=== PATIENT | female | born 1990 | race American Indian/Alaskan Native ===

== ENCOUNTER 2017-01-18 14:23 | Emergency (ER) | payer SELFPAY ==
[2017-01-18 14:36] VITALS: BP 115/61; PULSE 94; TEMP 98; BMI 23.3
--- NOTE | 2017-01-18 15:19 | PDOC ---
History of Present Illness - General Chief Complaint: ,Possible Stated Complaint: TEST Time Seen by Provider: 01/18/17 14:56 History Source: Patient Exam Limitations: No Limitations - History of Present Illness Initial Comments: 01/18/17 15:13 Patient is a 26-year-old female, denies any significant medical history currently on no medication presents emergency department requesting testing. Patient states her last menstrual period that was normal was December 05. She has not gotten her. On January 04 that she has tried several tests at home with faint line which determines patient wants to make sure that she is . He denies any vaginal discharge or bleeding, no abdominal pain, no cramping, no back pain, no urinary symptoms. No fever. Past Medical History: Denies. Allergies: No known allergies Medications: None Family History: Non-contributory Social History: Denies smoking, alcohol use, or IVDU Review of Systems GENERAL/CONSTITUTIONAL: No fever or chills. No weakness. No weight change. HEAD, EYES, EARS, NOSE AND THROAT: No change in vision. No ear pain or discharge. No sore throat. CARDIOVASCULAR: No chest pain or shortness of breath. RESPIRATORY: No cough, wheezing, or hemoptysis. GASTROINTESTINAL: No nausea, vomiting, diarrhea or constipation. No rectal bleeding. GENITOURINARY: No dysuria, frequency, or change in urination. MUSCULOSKELETAL: No joint or muscle swelling or pain. No neck or back pain. SKIN AND BREASTS: No rash or easy bruising. NEUROLOGIC: No headache, vertigo, loss of consciousness, or loss of sensation. PSYCHIATRIC: No depression or anxiety. ENDOCRINE: No increased thirst. No abnormal weight change. HEMATOLOGIC/LYMPHATIC: No anemia, easy bleeding, or history of blood clots. ALLERGIC/IMMUNOLOGIC: No hives or skin allergy. No latex allergy. Physical Exam: GENERAL: The patient is awake, alert, and fully oriented, in no acute distress. HEAD: Normal with no signs of trauma. EYES: Pupils equal, round and reactive to light, extraocular movements intact, sclera anicteric, conjunctiva clear. ENT: Ears normal, nares patent, oropharynx clear without exudates. Moist mucous membranes. No uvula deviation NECK: Normal range of motion, supple without lymphadenopathy, JVD, or masses. LUNGS: Breath sounds equal, clear to auscultation bilaterally. No wheezes, and no crackles. HEART: Regular rate and rhythm, normal S1 and S2 without murmur, rub or gallop. ABDOMEN: Soft, nontender, normoactive bowel sounds. No guarding, no rebound. No masses. No bruising or abrasions MUSCULOSKELETAL: Normal range of motion, no edema. No clubbing or cyanosis. No cords, erythema, or tenderness. No CVA Tenderness with fist. SKIN: Warm, Dry, normal turgor, no rashes or lesions noted. 01/18/17 19:20 Past History - Past Medical History Allergies/Adverse Reactions: Allergies Allergy/AdvReac Type Severity Reaction Status Date / Time No Known Allergies Allergy Verified 01/18/17 14:36 Home Medications: Ambulatory Orders NK [No Known Home Medication] 01/18/17 Other medical history: DENIES. - Suicide/Smoking/Psychosocial Hx Smoking History: Current every day smoker Number of Cigarettes Smoked Daily: 4 Information on smoking cessation initiated: No Hx Alcohol Use: No Drug/Substance Use Hx: No Substance Use Type: None *Physical Exam - Vital Signs Last Vital Signs Temp Pulse Resp BP Pulse Ox 98 F 94 H 18 115/61 99 01/18/17 14:35 01/18/17 14:35 01/18/17 14:35 01/18/17 14:35 01/18/17 14:35 Medical Decision Making - Medical Decision Making 01/18/17 15:18 A/P: Patient here for testing, urine sent, awaiting results physical examination is benign. 01/18/17 16:07 Urine is negative. Patient will need to follow up with HIV COUNSELOR for amenorrhea, patient states her sister has the same stated problem and is currently being worked up. *DC/Admit/Observation/Transfer Diagnosis at time of Disposition: Amenorrhea - Discharge Dispostion Disposition: HOME Condition at time of disposition: Good Admit: No - Referrals Referrals: Rehana Francisco MD [Staff Physician] - - Patient Instructions Printed Discharge Instructions: DI for Amenorrhea Additional Instructions: Recommend follow-up as soon as possible with HIV COUNSELOR. If any abdominal pain, cramping, bleeding, discharge, or any other concerns return to ER
[2017-01-18 15:45] LABS: URINE APPEARANCE CLEAR; URINE BILIRUBIN NEGATIVE (NEGATIVE); URINE BLOOD NEGATIVE (NEGATIVE); URINE COLOR STRAW; URINE GLUCOSE (UA) NEGATIVE (NEGATIVE); URINE KETONE NEGATIVE (NEGATIVE); URINE NITRITE NEGATIVE (NEGATIVE); URINE PROTEIN NEGATIVE (NEGATIVE); URINE UROBILINOGEN NEGATIVE mg/dL (0.2-1.0)
[2017-01-18 18:01] LABS: URINE LEUK ESTERASE Negative (NEGATIVE)
== END 2017-01-18 16:12 | disposition home or self-care (01) ==
LOC: JERFT 14:23
DX: N91.2 Amenorrhea, unspecified (principal)
CPT/HCPCS: 81003; 84703; 99281-25

== ENCOUNTER 2017-02-01 11:30 | Emergency (ER) | payer SELFPAY ==
[2017-02-01 11:41] VITALS: BP 108/72; PULSE 98; TEMP 98; BMI 23.8
--- NOTE | 2017-02-01 12:16 | PDOC ---
History of Present Illness - General Chief Complaint: Vaginal Bleeding Stated Complaint: REVISIT/ FOLLOW-UP Time Seen by Provider: 02/01/17 12:15 History Source: Patient - History of Present Illness Timing/Duration: reports: changing over time Past History - Past Medical History Allergies/Adverse Reactions: Allergies Allergy/AdvReac Type Severity Reaction Status Date / Time No Known Allergies Allergy Verified 02/01/17 11:41 Home Medications: Ambulatory Orders NK [No Known Home Medication] 01/18/17 COPD: No - Suicide/Smoking/Psychosocial Hx Smoking History: Never smoked Number of Cigarettes Smoked Daily: 4 Hx Alcohol Use: No Drug/Substance Use Hx: No Substance Use Type: None Review of Systems - Review of Systems Constitutional: No: Chills, Fever ABD/GI: No: Nausea, Vomiting : No: Dysuria, Flank Pain *Physical Exam - Vital Signs Last Vital Signs Temp Pulse Resp BP Pulse Ox 98.0 F 98 H 20 108/72 100 02/01/17 11:38 02/01/17 11:38 02/01/17 11:38 02/01/17 11:38 02/01/17 11:38 - Physical Exam General Appearance: Yes: Appropriately Dressed. No: Apparent Distress HEENT: positive: Normal Voice Neck: positive: Supple Respiratory/Chest: negative: Respiratory Distress Female Pelvic Exam: positive: normal external exam, cervical os closed, normal adnexa, vaginal bleeding (small amount vag bleed, no clots). negative: CMT Gastrointestinal/Abdominal: positive: Soft. negative: Tender Musculoskeletal: negative: CVA Tenderness Integumentary: positive: Dry, Warm Neurologic: positive: Fully Oriented, Alert, Normal Mood/Affect ED Treatment Course - RADIOLOGY Radiology Studies Ordered: Category Date Time Status TRANSVAGINAL US PREG [US] Stat Ultrasound 02/01/17 12:16 Ordered Medical Decision Making - Medical Decision Making 02/01/17 12:26 26-year-old female, (s/p 2 spon abs), ~8 weeks by dates, seen in the ER 5 days ago for abdominal pain. Beta was 866 with no IUP on ultrasound and no e/ o ectopic. Was told to return yesterday for reassessment, but had to work so was unable to make it as per patient. States abdominal pain has since resolved. Is currently spotting but no clots. Denies dysuria, n/v/f/c See exam 1st trimester bleed No IUP on US 5 days ago w/ beta of 866, ua wnl Stable and well marcie w/ small amount of vag bleed and closed os -trent rpt beta and US at this time 02/01/17 13:22 02/01/17 13:42 Beta >3K. Signed out to ED Ora pending US 02/01/17 13:50 02/01/17 16:55 *DC/Admit/Observation/Transfer Diagnosis at time of Disposition: Bleeding in early - Discharge Dispostion Disposition: HOME Condition at time of disposition: Stable - Referrals Referrals: Guillermo Arreguin MD [Staff Physician] - Rehana Francisco MD [Staff Physician] - - Patient Instructions Printed Discharge Instructions: DI for Vaginal Bleeding During Additional Instructions: Please return to the ER if symptoms persist, worsen, or new symptoms arise. Please follow up with your primary care physician in 2-3 days. Please follow up with Dr. Francisco (TRUCK ENGINE ASSEMBLER) by calling her office tomorrow. Please return to the ER if you have any signs or symptoms of chest pain, shortness of breath, uncontrollable fever, chills, nausea, vomiting, numbness, tingling, or weakness in any part of your body, changes in vision, or slurred speech. Print Language: BELARUSIAN
[2017-02-01 13:38] LABS: URINE APPEARANCE SLCLOUDY; URINE BILIRUBIN NEGATIVE (NEGATIVE); URINE BLOOD 2+ (NEGATIVE); URINE COLOR YELLOW; URINE GLUCOSE (UA) NEGATIVE (NEGATIVE); URINE KETONE NEGATIVE (NEGATIVE); URINE NITRITE NEGATIVE (NEGATIVE); URINE PROTEIN NEGATIVE (NEGATIVE); URINE UROBILINOGEN NEGATIVE mg/dL (0.2-1.0)
--- NOTE | 2017-02-01 14:08 | PDOC ---
*Physical Exam - Vital Signs Last Vital Signs Temp Pulse Resp BP Pulse Ox 98.0 F 98 H 20 108/72 100 02/01/17 11:38 02/01/17 11:38 02/01/17 11:38 02/01/17 11:38 02/01/17 11:38 ED Treatment Course - ADDITIONAL ORDERS Additional order review: Laboratory Results 02/01/17 02/01/17 12:28 12:20 Beta HCG, Quant 3214.1 Urine Color Yellow Urine Appearance Slcloudy Urine pH 5.0 Ur Specific [place] 1.015 Urine Protein Negative Urine Glucose (UA) Negative Urine Ketones Negative Urine Blood 2+ H Urine Nitrite Negative Urine Bilirubin Negative Urine Urobilinogen Negative Medical Decision Making - Medical Decision Making 02/01/17 14:07 The patient was signed out to me by AILYN Dolan. Patient is a 26F with previous complaints of vaginal bleeding. Pending U/ S. 02/01/17 16:14 U/S shows gestational sac at 6 weeks with no pole. No evidence of pathology in adnexa. *DC/Admit/Observation/Transfer Diagnosis at time of Disposition: Bleeding in early - Discharge Dispostion Disposition: HOME Condition at time of disposition: Stable - Referrals Referrals: Rehana Francisco MD [Staff Physician] - Guillermo Arreguin MD [Staff Physician] - - Patient Instructions Additional Instructions: Please return to the ER if symptoms persist, worsen, or new symptoms arise. Please follow up with your primary care physician in 2-3 days. Please follow up with Dr. Francisco (SAMPLE DISTRIBUTOR) by calling her office tomorrow. Please return to the ER if you have any signs or symptoms of chest pain, shortness of breath, uncontrollable fever, chills, nausea, vomiting, numbness, tingling, or weakness in any part of your body, changes in vision, or slurred speech.
[2017-02-01 14:21] LABS: URINE MUCUS RARE; URINE WBC <1 /hpf (3-5)
[2017-02-01 18:01] LABS: URINE LEUK ESTERASE Negative (NEGATIVE)
== END 2017-02-01 16:40 | disposition home or self-care (01) ==
LOC: JER 11:30
DX: O26.891 Other specified pregnancy related conditions, first trimester (principal); Z3A.08 8 weeks gestation of pregnancy; N93.9 Abnormal uterine and vaginal bleeding, unspecified
CPT/HCPCS: 36415; 76817-TC; 76856-TC; 81003; 81015; 84702; 99282-25

== ENCOUNTER 2018-11-28 14:43 | Emergency (ER) | payer SELFPAY ==
[2018-11-28 14:50] VITALS: BMI 27.3
--- NOTE | 2018-11-28 14:55 | PDOC ---
Rapid Medical Evaluation Chief Complaint: Pain Time Seen by Provider: 11/28/18 14:47 Medical Evaluation: Allergies Allergy/AdvReac Type Severity Reaction Status Date / Time No Known Allergies Allergy Verified 11/28/18 14:50 Vital Signs Temp Pulse Resp BP Pulse Ox 98 F 71 18 135/94 99 11/28/18 14:45 11/28/18 14:45 11/28/18 14:45 11/28/18 14:45 11/28/18 14:45 11/28/18 14:52 I have performed a brief in-person evaluation of this patient. The patient presents with a chief complaint of: Lower abd pain. States she had sexual intercourse w/ condom use with new partner 1 week ago and states condom came out of her yesterday. No vag discharge, dysuria, n/v/f/c Pertinent physical exam findings:Stable I have ordered the following:ua/upreg/gc/chlam The patient will proceed to the ED for further evaluation. Discharge Disposition - Diagnosis Abdominal pain Qualifiers: Abdominal location: unspecified location Qualified Code(s): R10.9 - Unspecified abdominal pain - Referrals - Patient Instructions - Post Discharge Activity
[2018-11-28 15:39] LABS: EPI CELLS 2.6 /HPF (0-5/HPF); HYALINE CASTS 1 /lpf (0-8); URINE APPEARANCE CLEAR; URINE BACTERIA 15.9 /hpf (NEGATIVE); URINE BILIRUBIN NEGATIVE (NEGATIVE); URINE COLOR YELLOW; URINE GLUCOSE (UA) NEGATIVE (NEGATIVE); URINE KETONE NEGATIVE (NEGATIVE); URINE LEUK ESTERASE 1+ (NEGATIVE); URINE NITRITE NEGATIVE (NEGATIVE); URINE PROTEIN NEGATIVE (NEGATIVE); URINE RBC 4 /hpf (0-4); URINE UROBILINOGEN 0.2 mg/dL (0.2-1.0); URINE WBC 6 /hpf (0-5)
--- NOTE | 2018-11-28 17:53 | PDOC ---
History of Present Illness - General Chief Complaint: Pain Stated Complaint: ABD PAIN Time Seen by Provider: 11/28/18 14:47 History Source: Patient Exam Limitations: No Limitations Past History - Past Medical History Allergies/Adverse Reactions: Allergies Allergy/AdvReac Type Severity Reaction Status Date / Time No Known Allergies Allergy Verified 11/28/18 14:50 Home Medications: Ambulatory Orders Doxylamine Succinate/Vit B6 [Yousif Loera 10-10 mg Tablet] 1 each PO ASDIR #60 tablet. 02/06/17 COPD: No - Reproductive History Therapeutic (s) & number: No - Immunization History Immunization Up to Date: Yes - Suicide/Smoking/Psychosocial Hx Smoking History: Never smoked Number of Cigarettes Smoked Daily: 4 Hx Alcohol Use: No Drug/Substance Use Hx: No Substance Use Type: None *Physical Exam - Vital Signs Last Vital Signs Temp Pulse Resp BP Pulse Ox 98 F 71 18 135/94 99 11/28/18 14:45 11/28/18 14:45 11/28/18 14:45 11/28/18 14:45 11/28/18 14:45 - Physical Exam General Appearance: No: Apparent Distress Respiratory/Chest: positive: Lungs Clear, Normal Breath Sounds. negative: Respiratory Distress Cardiovascular: positive: Regular Rhythm, Regular Rate, S1, S2. negative: Murmur Female Pelvic Exam: positive: normal external exam, discharge (small amount of dark brown discharge noted), other (no FB noted in vaginal vault). negative: CMT, adnexal tenderness Gastrointestinal/Abdominal: positive: Normal Bowel Sounds, Soft. negative: Tender, Distended, Guarding, Rebound Neurologic: positive: Alert, Normal Mood/Affect ED Treatment Course - ADDITIONAL ORDERS Additional order review: Laboratory Results 11/28/18 11/28/18 15:23 15:23 Urine Color Yellow Urine Appearance Clear Urine pH 6.0 Ur Specific [place] 1.004 L Urine Protein Negative Urine Glucose (UA) Negative Urine Ketones Negative Urine Blood 1+ H Urine Nitrite Negative Urine Bilirubin Negative Urine Urobilinogen 0.2 Ur Leukocyte Esterase 1+ H Urine WBC (Auto) 6 Urine RBC (Auto) 4 Urine Casts (Auto) 1 U Epithel Cells (Auto) 2.6 Urine Bacteria (Auto) 15.9 Urine HCG, Qual Negative Medical Decision Making - Medical Decision Making 28 y/o F with no sig pmh presents with lower abdomen/pelvic pain x 3-4 days. Mentions had intercourse last week and last night, the condom fell out of her vagina. Also noting slight vaginal spotting x 2 days and very mild dysuria. Is sexually active with 1 partner; has no prior hx of STDs. Denies fever, sob, cp, dizziness, vomiting, diarrhea, urinary frequency/urgency, hematuria, rash. PE unremarkable with no FB noted Urine unremarkable and UCG negative Unlikely PID, Tubo-ovarian abscess, toxic shock syndrome GC was sent; patient prefers to be informed regarding results and get tx if necessary 11/28/18 17:50 *DC/Admit/Observation/Transfer Diagnosis at time of Disposition: Abdominal pain Qualifiers: Abdominal location: unspecified location Qualified Code(s): R10.9 - Unspecified abdominal pain - Discharge Dispostion Disposition: HOME Condition at time of disposition: Stable Decision to Admit order: No - Referrals - Patient Instructions Additional Instructions: Thank you for choosing [facility]. It was a pleasure taking care of you. You will be informed regarding lab results In the interim, refrain from sexual intercourse for 1 week Follow-up with your regular doctor and processor helper Return to the Emergency Department if your symptoms worsen or persist, you have fever, shortness of breath, chest pain, severe abdominal pain, vomiting, unusual vaginal discharge or other concerning symptoms. - Post Discharge Activity
[2018-11-28 18:22] VITALS: BP 122/74; PULSE 18; TEMP 98
== END 2018-11-28 18:22 | disposition home or self-care (01) ==
LOC: JER 14:43
DX: R10.9 Unspecified abdominal pain (principal)
CPT/HCPCS: 36415; 81003; 84703; 87086; 87186; 87491; 87591; 99283-25

== ENCOUNTER 2021-09-24 12:20 | Emergency (ER) | payer OTHER ==
[2021-09-24 12:32] VITALS: BP 116/83; PULSE 104; TEMP 98; BMI 26.2
[2021-09-24 15:11] LABS: BASO % 0.7 % (0-2.0); EOS % 0.5 % (0-4.5); HEMOGLOBIN 14.5 GM/dL (10.7-15.3); LYMPH % 27.1 % (8-40); MCH 30.9 pg (25.7-33.7); MCHC 33.7 g/dl (32.0-36.0); MEAN CELL VOLUME 91.6 fl (80-96); MEAN PLT VOLUME 8.8 fl (7.5-11.1); MONO % 10.4 % (3.8-10.2); NEUT % 61.3 % (42.8-82.8); PLATELET COUNT 297 10^3/uL (134-434); RDW 12.9 % (11.6-15.6); WHITE BLOOD COUNT 7.6 K/mm3 (4.0-10.0)
[2021-09-24 15:29] LABS: URINE APPEARANCE CLEAR; URINE BILIRUBIN NEGATIVE (NEGATIVE); URINE COLOR YELLOW; URINE GLUCOSE (UA) NEGATIVE (NEGATIVE); URINE KETONE NEGATIVE (NEGATIVE); URINE LEUK ESTERASE NEGATIVE (NEGATIVE); URINE NITRITE NEGATIVE (NEGATIVE); URINE PROTEIN NEGATIVE (NEGATIVE); URINE UROBILINOGEN 0.2 mg/dL (0.2-1.0)
[2021-09-24 15:30] LABS: BLOOD UREA NITROGEN 8.4 mg/dL (7-18); CALCIUM 9.3 mg/dL (8.5-10.1)
[2021-09-24 15:32] LABS: ALBUMIN 3.9 g/dl (3.4-5.0)
[2021-09-24 15:33] LABS: CREATININE 0.6 mg/dL (0.55-1.3)
[2021-09-24 15:35] LABS: BILIRUBIN,TOTAL 0.9 mg/dL (0.2-1); TOT PROT 7.4 g/dl (6.4-8.2)
== END 2021-09-24 18:54 | disposition home or self-care (01) ==
LOC: JER 12:20 → JERFT 12:20
DX: O26.899 Other specified pregnancy related conditions, unspecified trimester (principal); R10.2 Pelvic and perineal pain; Z3A.00 Weeks of gestation of pregnancy not specified
CPT/HCPCS: 36415; 76817-TC; 80053; 81003; 84702; 85025; 86850; 86900; 86901; 87086; 99284-25

== ENCOUNTER 2021-10-03 12:05 | Emergency (ER) | payer OTHER ==
[2021-10-03 12:11] VITALS: TEMP 98.7; BMI 26.2
[2021-10-03 13:18] LABS: BASO % 0.4 % (0-2.0); EOS % 0.4 % (0-4.5); HEMATOCRIT 41.2 % (32.4-45.2); HEMOGLOBIN 14.4 GM/dL (10.7-15.3); LYMPH % 23.2 % (8-40); MCH 31.4 pg (25.7-33.7); MCHC 34.8 g/dl (32.0-36.0); MEAN CELL VOLUME 90.1 fl (80-96); MEAN PLT VOLUME 9.2 fl (7.5-11.1); MONO % 8.6 % (3.8-10.2); NEUT % 67.4 % (42.8-82.8); PLATELET COUNT 326 10^3/uL (134-434); RBC 4.57 M/mm3 (3.60-5.2); WHITE BLOOD COUNT 9.3 K/mm3 (4.0-10.0)
[2021-10-03 13:19] LABS: EPI CELLS 25 /uL (0-25.1); HYALINE CASTS 1 /uL (0-3.1); PH,URINE 5.5 (5.0-8.0); URINE APPEARANCE CLEAR; URINE BACTERIA 906 /uL (0-1359); URINE BILIRUBIN NEGATIVE (NEGATIVE); URINE COLOR YELLOW; URINE GLUCOSE (UA) NEGATIVE (NEGATIVE); URINE KETONE NEGATIVE (NEGATIVE); URINE LEUK ESTERASE NEGATIVE (NEGATIVE); URINE NITRITE NEGATIVE (NEGATIVE); URINE PROTEIN NEGATIVE (NEGATIVE); URINE RBC 16 /uL (0-23.9); URINE UROBILINOGEN 0.2 mg/dL (0.2-1.0); URINE WBC 15 /uL (0-25.8)
[2021-10-03 13:25] LABS: INR 1.04 (0.83-1.09)
[2021-10-03 13:28] LABS: ACTIVATED PTT 33.6 SECONDS (25.2-36.5)
[2021-10-03 14:40] LABS: CHLORIDE 107 mmol/L (98-107); SODIUM 135 mmol/L (136-145)
[2021-10-03 14:42] LABS: ALBUMIN 3.7 g/dl (3.4-5.0); BLOOD UREA NITROGEN 6.4 mg/dL (7-18); CO2 21 mmol/L (21-32); GLUCOSE,RANDOM 89 mg/dL (74-106)
[2021-10-03 14:45] LABS: CREATININE 0.6 mg/dL (0.55-1.3); SGOT/AST 84 U/L (15-37)
[2021-10-03 14:47] LABS: BILIRUBIN,TOTAL 0.8 mg/dL (0.2-1); TOT PROT 7.9 g/dl (6.4-8.2)
[2021-10-03 14:48] LABS: ALK PHOS 72 U/L (45-117)
[2021-10-03 15:04] LABS: ANION GAP 7 MMOL/L (8-16); SGPT/ALT 38 U/L (13-61)
[2021-10-03] MEDS ORDERED: CEPHALEXIN MONOHYDRATE 500 MG CAPSULE (UD) PO ONE (16:57)
[2021-10-03 16:58] LABS: CALCIUM 9.6 mg/dL (8.5-10.1)
[2021-10-03 16:59] LABS: BLOOD UREA NITROGEN 6.8 mg/dL (7-18)
[2021-10-03 17:02] LABS: CREATININE 0.6 mg/dL (0.55-1.3)
[2021-10-03] MEDS ORDERED: CEPHALEXIN MONOHYDRATE 500 MG CAPSULE (UD) ONE (17:20)
[2021-10-03 17:23] VITALS: BP 122/78; PULSE 76
== END 2021-10-03 17:23 | disposition home or self-care (01) ==
LOC: JER 12:05
DX: O20.9 Hemorrhage in early pregnancy, unspecified (principal); Z3A.00 Weeks of gestation of pregnancy not specified
CPT/HCPCS: 36415; 76817-TC; 80048; 80053; 81003; 84702; 85025; 85610; 85730; 87086; 99284-25

== ENCOUNTER 2021-10-08 14:57 | Emergency (ER) | payer OTHER ==
[2021-10-08 15:10] VITALS: BP 114/73; PULSE 93; TEMP 98.4; BMI 26.5
[2021-10-08 17:08] LABS: BASO % 0.7 % (0-2.0); EOS % 0.8 % (0-4.5); HEMATOCRIT 39.5 % (32.4-45.2); HEMOGLOBIN 13.5 GM/dL (10.7-15.3); LYMPH % 29.1 % (8-40); MCH 31.1 pg (25.7-33.7); MCHC 34.2 g/dl (32.0-36.0); MEAN CELL VOLUME 90.9 fl (80-96); MEAN PLT VOLUME 8.4 fl (7.5-11.1); MONO % 10.7 % (3.8-10.2); NEUT % 58.7 % (42.8-82.8); PLATELET COUNT 288 10^3/uL (134-434); RBC 4.35 M/mm3 (3.60-5.2); RDW 12.6 % (11.6-15.6); WHITE BLOOD COUNT 7.9 K/mm3 (4.0-10.0)
[2021-10-08 17:14] LABS: BLOOD UREA NITROGEN 6.7 mg/dL (7-18)
[2021-10-08 17:15] LABS: ALBUMIN 3.6 g/dl (3.4-5.0)
[2021-10-08 17:18] LABS: CREATININE 0.5 mg/dL (0.55-1.3)
[2021-10-08 17:19] LABS: BILIRUBIN,TOTAL 0.8 mg/dL (0.2-1); TOT PROT 6.8 g/dl (6.4-8.2)
== END 2021-10-08 18:24 | disposition home or self-care (01) ==
LOC: JER 14:57
DX: O20.0 Threatened abortion (principal)
CPT/HCPCS: 36415; 76817-TC; 80053; 84702; 85025; 99284-25

== ENCOUNTER 2021-10-23 00:50 | Emergency (ER) | payer OTHER ==
[2021-10-23 01:55] VITALS: BP 134/72; RESP 109; TEMP 97.9; BMI 27.3
[2021-10-23 02:35] LABS: BASO % 0.4 % (0-2.0); EOS % 0.2 % (0-4.5); HEMATOCRIT 38.9 % (32.4-45.2); HEMOGLOBIN 13.2 GM/dL (10.7-15.3); LYMPH % 12.9 % (8-40); MCH 30.9 pg (25.7-33.7); MCHC 33.9 g/dl (32.0-36.0); MEAN CELL VOLUME 91.2 fl (80-96); MEAN PLT VOLUME 9.2 fl (7.5-11.1); MONO % 4.9 % (3.8-10.2); NEUT % 81.6 % (42.8-82.8); PLATELET COUNT 251 10^3/uL (134-434); RBC 4.27 M/mm3 (3.60-5.2)
[2021-10-23 02:54] LABS: CALCIUM 9.2 mg/dL (8.5-10.1)
[2021-10-23 02:55] LABS: ALBUMIN 3.4 g/dl (3.4-5.0); BLOOD UREA NITROGEN 7.8 mg/dL (7-18)
[2021-10-23 02:58] LABS: CREATININE 0.5 mg/dL (0.55-1.3)
[2021-10-23 03:00] LABS: BILIRUBIN,TOTAL 0.5 mg/dL (0.2-1); TOT PROT 6.6 g/dl (6.4-8.2)
[2021-10-23] MEDS ORDERED: KETOROLAC TROMETHAMINE 30 MG/1 ML VIAL IM ONE (03:29)
[2021-10-23] MEDS ORDERED: KETOROLAC TROMETHAMINE 30 MG/1 ML VIAL ONE (03:32)
== END 2021-10-23 06:12 | disposition home or self-care (01) ==
LOC: JER 00:50
DX: O03.9 Complete or unspecified spontaneous abortion without complication (principal); R10.2 Pelvic and perineal pain
CPT/HCPCS: 36415; 76817-TC; 80053; 84702; 85025; 86850; 86900; 86901; 99284-25; C9803-CS; U0003; U0005